=== PATIENT | female | born 1985 | race Caucasian/White ===

== ENCOUNTER → 2017-06-27 | Outpatient (CLI) | payer OTHER ==
[~2017-06-27] MED LIST: BCPILLS PO
== END | disposition home or self-care (01) ==
LOC: C.LABBFT 08:59
PROVIDERS: ATTEND Obstetrics & Gynecology
DX: Z31.69 Encounter for other general counseling and advice on procreation (principal)

== ENCOUNTER → 2017-06-27 | Outpatient (CLI) | payer OTHER | END | disposition home or self-care (01) | LOC: C.PAPS 12:00 | PROVIDERS: ATTEND Obstetrics & Gynecology | DX: Z12.4 Encounter for screening for malignant neoplasm of cervix (principal) ==

== ENCOUNTER 2018-10-22 06:55 | Inpatient (IN) ==
[2018-10-22] MEDS ORDERED: LACTATED RINGER'S 1,000 ML IV PRN (08:13)
[2018-10-22] MEDS ORDERED: OXYTOCIN 30 UNITS/500 ML BAG IV PRN ×2 (08:13→21:39)
--- NOTE | 2018-10-22 08:19 | History & Physical Report ---
Date of Service October 22, 2018 Assessment & Plan (1) 41 weeks gestation of : Admit to L&D. EFM/toco. IV fluids. Labs. Patient requests to labor as naturally as possible - wants to avoid induction/augementation of labor if at all possible. Wants to avoid epidural. History of Present Illness Chief Complaint: regular contractions Primary Care Provider: NO PCP 33yo @ 41 3/7 presents with regular contractions, feeling like they are worsening throughout the weekend. + movement, no vaginal bleeding, no leaking of fluid. is complicated by GDMA1 and postdates. She was originally scheduled for induction of labor last week, but refused this, hoping she'd go into labor on her own. Allergies Allergy/AdvReac Type Severity Reaction Status Date / Time No Known Allergies Allergy Verified 10/22/18 07:08 Home Medications Home Medications Medication Instructions Recorded Confirmed Type docusate sodium 100 mg capsule 100 mg PO DAILY cap 09/21/18 10/22/18 History ferrous gluconate 256 mg (28 mg 256 mg PO DAILY tab 09/21/18 10/22/18 History iron) tablet PNV [id number]-ferrous fumarate-FA 1 tab PO DAILY 10/22/18 10/22/18 History [] Patient History Social History Preferred Language: Persian [employer] Operator Required: No Beliefs That Will Affect Care: None marital status: Current Living Situation: Spouse Other Information That Helps Us Care for You: No Feels Safe at Home: Yes Safety Concerns: Feels Safe At This Time Smoking Status: Never smoker Do You Dip or Chew Tobacco: No Second Hand Exposure: No Hx Alcohol Use: No Hx Substance Use: No Review of Systems All systems reviewed & are unremarkable except as noted in HPI & below Physical Exam Physical Exam: Gen: AAOx3 NAD CV: RRR L: CTAB Abd: soft, gravid, NTTP. EFW 7-8 Ext: no edema, no calf tenderness SVE: 5/80/-2, bulging membranes FHT 150s mod juliane +accels, no decels. Cat 1 [place] Q 2 Results & Data Vital Signs (Past 12 Hours) Vital Signs Temp Pulse Resp BP 10/22/18 07:03 88 123/71 10/22/18 07:01 36.9 C 18
[2018-10-22 08:29] LABS: Hematocrit (blood only) 40.7 % (37-47); Hemoglobin 14.1 g/dL (12.0-16.0); Mean Corpuscular Volume 91.7 fL (80-100); Mean Platelet Volume 9.9 fL (7.4-10.4); Platelet Count 229 K/uL (130-400); RDW Coefficient of Variation 12.7 % (11.5-14.5); RDW Standard Deviation 42.8 fL (36.4-46.3); Red Blood Count 4.44 M/uL (4.2-5.4); White Blood Count 12.38 K/uL (4.8-10.8)
[2018-10-22 08:54] LABS: Mean Corpuscular Hgb Conc 34.6 g/dL (32-36)
--- NOTE | 2018-10-22 15:53 | Obstetrical Progress Note ---
Date of Service October 22, 2018 Subjective Feeling ctx, does not desire epidural. FHT Cat 1 [place] Q 4 min AROM performed, blood-tinged fluid. SVE 7/100/-1 Discussed with patient that if ctx do not increase after AROM, will recommend pitocin augmentation. Results & Data Vital Signs (Past 12 Hours) Vital Signs Temp Pulse Resp BP 10/22/18 15:15 36.9 C 77 16 126/86 10/22/18 12:32 88 131/73 10/22/18 12:30 37.0 C 18 10/22/18 10:48 78 132/82 10/22/18 10:47 37.1 C 18 10/22/18 07:03 88 123/71 10/22/18 07:01 36.9 C 18
--- NOTE | 2018-10-22 19:08 | Obstetrical Progress Note ---
Date of Service October 22, 2018 Subjective Getting uncomfortable with ctx. Not yet needing to push. FHT Cat 1 [place] Q 2-3 Anticipate . Results & Data Vital Signs (Past 12 Hours) Vital Signs Temp Pulse Resp BP 10/22/18 17:29 36.7 C 10/22/18 15:15 36.9 C 77 16 126/86 10/22/18 12:32 88 131/73 10/22/18 12:30 37.0 C 18 10/22/18 10:48 78 132/82 10/22/18 10:47 37.1 C 18 10/22/18 07:03 88 123/71 10/22/18 07:01 36.9 C 18
--- NOTE | 2018-10-22 21:16 | Procedure Note ---
Vaginal Delivery Summary Date of Service October 22, 2018 Vaginal Delivery Summary Vaginal Delivery Summary: Pre-delivery diagnoses: 33yo @ 41 3/7, GDMA1 Post-delivery diagnoses: same Procedure: spontaneous vaginal delivery, repair of 2nd degree perineal laceration Surgeon: Mendy Cruz DO Complications: none Findings: Viable . Apgars: 7/9 . Weight pending, please see nursery records Estimated blood loss: 300ml Description of delivery: The patient progressed to complete without anesthesia. She then began to push. She spontaneously vaginally delivered a viable male from the cephalic presentation. The head delivered in RAÚL position. Nu chal cord x 1 was easily reduced. There was a compound right (posterior) hand, this was delivered by sweeping it in front of the body. The anterior shoulder then delivered, followed by the posterior shoulder and body. The cord was doubly clamped and cut. The baby was handed to nursery team for immediate resuscitation. A segment was retained for cord gases. Cord blood was obtained. The placenta was delivered spontaneously intact with a 3-vessel cord. The uterus and vagina were swept of clots and debris. IV pitocin was given. The uterus became firm. Lidocaine was used as local anesthetic. The cervix, vagina, and perineum were inspected and a 2nd degree perineal laceration was noted and repaired in standard fashion. Excellent hemostasis was observed. The mother and baby are recovering in stable and good condition in the room. Sponge, needle, and instrument counts were correct x 2. Mendy Cruz DO [facility] [place]
[2018-10-22 21:37] LABS: Base Excess Cord Arterial Bld -3.9 mEq/L (-9-1.8); CO2 Cord Arterial Blood 45 mmHg (39.1-73.5); HCO3 Cord Arterial Blood 22 mmol/L (19.7-28.5); pH Cord Arterial Blood 7.31 (7.1-7.38)
[2018-10-22] MEDS ORDERED: ACETAMINOPHEN 325 MG TAB PO PRN (21:39)
[2018-10-22] MEDS ORDERED: BISACODYL 10 MG SUPP PR PRN (21:39)
[2018-10-22] MEDS ORDERED: HYDROCORTISONE ACETATE 25 MG SUPP PR PRN (21:39)
[2018-10-22] MEDS ORDERED: BENZOCAINE 20% AER SPR 82.5 GM CAN EXT PRN (21:39)
[2018-10-22] MEDS ORDERED: OXYCODONE/ACETAMINOPHEN 5mg/325mg TAB PO PRN (21:39)
[2018-10-22] MEDS ORDERED: SUPERCREAM 0.870% 15 GM JAR EXT PRN (21:39)
[2018-10-22 21:42] LABS: Cord Venous Blood HCO3 21 mmol/L (18.4-26.8); Cord Venous Blood PCO2 37 mmHg (30.4-57.2); Cord Venous Blood PO2 23 mmHg (14.1-43.3); Cord Venous Blood pH 7.37 (7.20-7.44)
[2018-10-22 21:44] LABS: O2 Saturation Cord Venous Bld < 60.0 % (<68)
[2018-10-23] MEDS: IBUPROFEN 600 MG TAB PO PRN ×4 (00:45→20:37)
--- NOTE | 2018-10-23 06:43 | Obstetrical Progress Note ---
Date of Service <Deon Chawla DO - Last Filed: 10/23/18 06:43> October 23, 2018 Assessment & Plan <Deon Chawla DO - Last Filed: 10/23/18 06:43> (1) (spontaneous vaginal delivery): -vital signs reviewed and WNL -last Hgb 14.1 -Blood type: O+, GBS-, Rubella Immune -pt doing well clinically -encourage ambulation, monitor and control pain with motrin tylenol, cont regular diet, monitor lochia -cont encourage breast feeding Subjective <Deon Chawla DO - Last Filed: 10/23/18 06:43> 33 y/o PPD1 found in bed this morning in NAD. Reports no acute overnight events. Pt states that she has no pain other than appropriate soreness. Tolerating PO intake without N/V. Able to ambulate without issue. She is breast feeding without issue. No issues with voiding, no BM yet and also has not noticed passing gas yet. No other acute concerns or complaints. Review of Systems All systems reviewed & are unremarkable except as noted in HPI & below Physical Exam <Deon Chawla DO - Last Filed: 10/23/18 06:43> Constitutional WD/WN, vitals as above Respiratory normal respiratory effort, lungs clear to auscultation Cardiovascular RRR, no murmur, no edema Gastrointestinal (Abdomen) mild abd tenderness Fundus 1 below U. Correlate with attending findings Skin no rashes, warm and dry Psychiatric A+Ox3, euthymic affect Lymphatic no LE swelling, no calf tenderness Results & Data <Deon Chwala DO - Last Filed: 10/23/18 06:43> Vital Signs (Past 12 Hours) Vital Signs Temp Pulse Pulse Resp BP BP Pulse Ox 10/23/18 03:35 36.5 C 90 16 115/66 96 10/23/18 00:20 36.8 C 89 18 107/66 96 10/22/18 23:06 100 H 106/65 10/22/18 23:03 36.8 C 96 H 18 103/60 10/22/18 22:51 99 H 115/56 L 10/22/18 22:36 87 120/60 10/22/18 22:21 93 H 126/64 10/22/18 22:06 96 H 18 123/60 10/22/18 21:51 82 20 115/59 L 10/22/18 21:36 90 20 126/63 10/22/18 21:21 96 H 20 125/66 10/22/18 21:06 98 H 16 121/58 L 10/22/18 20:11 36.9 C 22 Laboratory Results Laboratory Results - last 24 hr 10/22/18 10/22/18 10/22/18 08:20 14:28 16:20 WBC 12.38 H RBC 4.44 Hgb 14.1 Hct 40.7 MCV 91.7 MCH 31.8 MCHC 34.6 RDW Std Deviation 42.8 RDW Coeff of Rusty 12.7 Plt Count 229 MPV 9.9 Cord ABG pH Cord ABG pCO2 Cord ABG pO2 Cord ABG HCO3 Cord ABG Base Excess Cord ABG O2 Sat Cord VBG pH Cord VBG pCO2 Cord VBG pO2 Cord VBG HCO3 Cord VBG Base Excess Cord VBG O2 Sat Barometric Pressure Blood Gas Comments POC Glucose 104 H 97 10/22/18 10/22/18 10/22/18 18:41 20:53 20:53 WBC RBC Hgb Hct MCV MCH MCHC RDW Std Deviation RDW Coeff of Rusty Plt Count MPV Cord ABG pH 7.31 Cord ABG pCO2 45 Cord ABG pO2 17.0 Cord ABG HCO3 22 Cord ABG Base Excess -3.9 Cord ABG O2 Sat < 60.0 Cord VBG pH 7.37 Cord VBG pCO2 37 Cord VBG pO2 23 Cord VBG HCO3 21 Cord VBG Base Excess -4.0 Cord VBG O2 Sat < 60.0 Barometric Pressure 729.9 729.9 Blood Gas Comments VALDEZ VALDEZ POC Glucose 92 10/23/18 06:20 WBC RBC Hgb Pending Hct Pending MCV MCH MCHC RDW Std Deviation RDW Coeff of Rusty Plt Count MPV Cord ABG pH Cord ABG pCO2 Cord ABG pO2 Cord ABG HCO3 Cord ABG Base Excess Cord ABG O2 Sat Cord VBG pH Cord VBG pCO2 Cord VBG pO2 Cord VBG HCO3 Cord VBG Base Excess Cord VBG O2 Sat Barometric Pressure Blood Gas Comments POC Glucose Medications Administered Current Inpatient Medications Acetaminophen (Tylenol) 650 mg PO Q6H PRN PRN Reason: Pain/VILLATORO/Fever Stop: 11/21/18 21:38 Benzocaine (Dermoplast Pain Relieving [place]) 1 appln EXT PRN PRN PRN Reason: Perineal Discomfort Stop: 11/21/18 21:38 Last Admin: 10/23/18 00:45 Dose: 1 appln Documented by: Bisacodyl (Dulcolax) 5 mg PO 2000 COUNTS INCLUDE 234 BEDS AT THE [facility] Stop: 10/23/18 20:01 Bisacodyl (Dulcolax) 10 mg [place] DAILY PRN PRN Reason: No BM on 2nd post- day Stop: 11/21/18 21:38 Cocaine HCl (Supercream 0.870%) 1 gm EXT BID PRN PRN Reason: Hemorrhoidal Inflammation Stop: 11/05/18 21:38 Last Admin: 10/23/18 00:45 Dose: 1 appln Documented by: Diphtheria/Pertussis/Tetanus Vacc (Adacel) 0.5 ml IM .ONCE ONE Stop: 10/23/18 08:01 Docusate Sodium (Colace) 100 mg PO BID COUNTS INCLUDE 234 BEDS AT THE [facility] Stop: 11/22/18 08:59 Hydrocortisone (Anusol Hc) 25 mg [place] BID PRN PRN Reason: Hemorrhoidal Inflammation Stop: 11/21/18 21:38 Oxytocin (Pitocin) 30 units in 500 mls @ 333.333 mls/hr IV .Q1H30M PRN; Protocol PRN Reason: Bleeding Control Stop: 11/21/18 21:38 Last Titration: 10/22/18 23:02 Dose: Infused Documented by: Ibuprofen (Motrin) 600 mg PO Q4H PRN PRN Reason: Pain/VILLATORO/Cramping/Fever Stop: 11/21/18 21:38 Last Admin: 10/23/18 00:45 Dose: 600 mg Documented by: Oxycodone/Acetaminophen (Percocet 5mg/325mg) 1 tab PO Q4H PRN PRN Reason: Pain not relieved by... Stop: 11/05/18 21:38 Prenat Multivit/[place]/Iron/Folic Ac ( Vitamin) 1 tab PO QAM COUNTS INCLUDE 234 BEDS AT THE [facility] Stop: 11/22/18 08:59 <Mendy Cruz, DO - Last Filed: 10/23/18 07:52> Co-Signing Physician Notes Resident Physician Supervision Note: I was present with Dr. Chawla during the history and exam. I discussed the case with the resident and agree with the findings and plan as documented in the note. Any exceptions or clarifications are listed here: PPD#1 doing well. Anticipate DC home tomorrow. Documented By: Mendy Cruz DO Resident Activity Tracking <Deon Chawla DO - Last Filed: 10/23/18 06:43> Resident Involvement: Resident Care Provided Care Provided: OB Delivery
[2018-10-23 06:47] LABS: Hematocrit (blood only) 33.5 % (37-47); Hemoglobin 11.5 g/dL (12.0-16.0)
[2018-10-23] MEDS ORDERED: DIPHTHERIA/TETANUS/PERTUSSIS 0.5 ML SYR/VIAL IM ONE (08:00)
[2018-10-23] MEDS: DOCUSATE SODIUM 100 MG CAP PO SCH ×2 (09:01→20:36)
[2018-10-23] MEDS: PRENATAL VITAMIN 1 TAB PO SCH (09:01)
[2018-10-23] MEDS ORDERED: BISACODYL 5 MG TABEC PO SCH (20:00)
--- NOTE | 2018-10-24 06:49 | Obstetrical Progress Note ---
Date of Service <Deon Chawla, - Last Filed: 10/24/18 06:49> October 24, 2018 Assessment & Plan <Deon Chawla DO - Last Filed: 10/24/18 06:49> (1) (spontaneous vaginal delivery): -vital signs reviewed and WNL -last Hgb 11.5 -Blood type: O+, GBS-, Rubella Immune -pt doing well clinically -encourage ambulation, monitor and control pain with motrin tylenol, cont regular diet, monitor lochia -cont encourage breast feeding -plan for d/c today Subjective <Deon SuzanneTorey Chawla - Last Filed: 10/24/18 06:49> 33 y/o PPD2 found in bed this morning in NAD. Reports no acute overnight events. Pt states that she has no pain other than appropriate soreness. Tolerating PO intake without N/V. Able to ambulate without issue. She is breast feeding without issue. No issues with voiding, no gas/BM yet. No other acute concerns or complaints. Review of Systems All systems reviewed & are unremarkable except as noted in HPI & below Physical Exam <Deon Chawla, - Last Filed: 10/24/18 06:49> Constitutional WD/WN, vitals as above Respiratory normal respiratory effort, lungs clear to auscultation Cardiovascular RRR, no murmur, no edema Gastrointestinal (Abdomen) mild abd tenderness Fundus not palpated, please defer to attending findings Skin no rashes, warm and dry Psychiatric A+Ox3, euthymic affect Lymphatic no LE swelling, no calf tenderness Results & Data <Deon Chawla, - Last Filed: 10/24/18 06:49> Vital Signs (Past 12 Hours) Vital Signs Temp Pulse Resp BP Pulse Ox 10/23/18 23:10 36.9 C 75 16 119/76 94 10/23/18 19:20 37.1 C 86 16 113/75 96 Medications Administered Current Inpatient Medications Acetaminophen (Tylenol) 650 mg PO Q6H PRN PRN Reason: Pain/VILLATORO/Fever Stop: 11/21/18 21:38 Benzocaine (Dermoplast Pain Relieving [place]) 1 appln EXT PRN PRN PRN Reason: Perineal Discomfort Stop: 11/21/18 21:38 Last Admin: 10/23/18 00:45 Dose: 1 appln Documented by: Bisacodyl (Dulcolax) 10 mg [place] DAILY PRN PRN Reason: No BM on 2nd post- day Stop: 11/21/18 21:38 Cocaine HCl (Supercream 0.870%) 1 gm EXT BID PRN PRN Reason: Hemorrhoidal Inflammation Stop: 11/05/18 21:38 Last Admin: 10/23/18 00:45 Dose: 1 appln Documented by: Docusate Sodium (Colace) 100 mg PO BID [facility] Stop: 11/22/18 08:59 Last Admin: 10/23/18 20:36 Dose: 100 mg Documented by: Hydrocortisone (Anusol Hc) 25 mg [place] BID PRN PRN Reason: Hemorrhoidal Inflammation Stop: 11/21/18 21:38 Oxytocin (Pitocin) 30 units in 500 mls @ 333.333 mls/hr IV .Q1H30M PRN; Protocol PRN Reason: Bleeding Control Stop: 11/21/18 21:38 Last Titration: 10/22/18 23:02 Dose: Infused Documented by: Ibuprofen (Motrin) 600 mg PO Q4H PRN PRN Reason: Pain/VILLATORO/Cramping/Fever Stop: 11/21/18 21:38 Last Admin: 10/23/18 20:37 Dose: 600 mg Documented by: Oxycodone/Acetaminophen (Percocet 5mg/325mg) 1 tab PO Q4H PRN PRN Reason: Pain not relieved by... Stop: 11/05/18 21:38 Prenat Multivit/[employer] M[employer] Reader/Iron/Folic Ac ( Vitamin) 1 tab PO QAM [facility] Stop: 11/22/18 08:59 Last Admin: 10/23/18 09:01 Dose: 1 tab Documented by: <Jovanny Ho MD, FACOG - Last Filed: 10/24/18 06:50> Co-Signing Physician Notes Resident Physician Supervision Note: I interviewed and examined the patient. Discussed with [Emile] and agree with findings and plan as documented in the note. Any exceptions or clarifications are listed here: [None] Documented By: Jovanny Ho MD, FACOG Resident Activity Tracking <Deon Chawla, DO - Last Filed: 10/24/18 06:49> Resident Involvement: Resident Care Provided Care Provided: OB Delivery
[2018-10-24] MEDS: PRENATAL VITAMIN 1 TAB PO SCH (08:46)
[2018-10-24] MEDS: DOCUSATE SODIUM 100 MG CAP PO SCH (08:46)
[2018-10-24] MEDS: IBUPROFEN 600 MG TAB PO PRN (08:47)
== END 2018-10-24 13:16 | disposition home or self-care (01) | DRG 807 ==
LOC: OPB 06:55 → 4S1 06:58 → 4S2 10-23 00:10